=== PATIENT | female | born 1950 | race Caucasian/White ===

== ENCOUNTER 2019-09-15 11:00 | Emergency (ER) | payer MEDICARE, OTHER ==
[2019-09-15] MEDS ORDERED: Sodium Chloride 0.9% 10 ML Syringe FLUSH PRN (11:14)
--- NOTE | 2019-09-15 11:41 | EDM.PDOC ---
ED HPI GENERAL MEDICAL PROBLEM - General Chief Complaint: Respiratory Problem Stated Complaint: SOB Time Seen by Provider: 09/15/19 11:05 Source of Information: Reports: Patient History Limitations: Reports: No Limitations - History of Present Illness INITIAL COMMENTS - FREE TEXT/NARRATIVE: Pt. presents to ER with complaints of shortness of breath and chest pressure. Pt. states that the symptoms started today while she was riding a stationary bike (she does physical therapy for her knee). Pt. states that she was also nauseated. She states that the symptoms have never happened in the past. She has tolerated riding this bike recently in the past. She states that she has not been experiencing any fever or chills. No jaw, arm, neck or back pain. No diaphoresis. No cough. Denies any ill contacts. She is not expectorating any sputum. Onset: Today Onset Date: 09/15/19 Location: Reports: Chest, Generalized Quality: Reports: Pressure Improves with: Reports: Rest Worsens with: Reports: Movement Context: Reports: Exercise Associated Symptoms: Reports: Shortness of Breath - Related Data Allergies Allergy/AdvReac Type Severity Reaction Status Date / Time Iodinated Contrast Media Allergy Severe Hives Verified 09/15/19 11:14 [Iodinated Contrast Media - IV Dye] metoclopramide AdvReac Headache Verified 09/15/19 11:14 HAYFEVER Allergy Shortness Uncoded 05/15/14 13:39 of Breath Home Meds: Home Meds Calcium Carb, Citrate/Vit D3 [Calcium + D3 ER Tablet] 1 each PO DAILY 05/15/14 [ History] Glucosam/Chond/Collagen/Hyalur [Glucosamine Chondroitin] 1 each PO DAILY [History] Multivitamin [Multivitamins] 1 each PO DAILY 05/15/14 [History] Simvastatin [Zocor] 10 mg PO BEDTIME 05/15/14 [History] Triamcinolone Acetonide [Nasacort] 10.8 ml NS DAILY 05/15/14 [History] Diclofenac Sodium [Voltaren] 75 mg PO DAILY #0 05/21/14 [Rx] Aspirin [Aspirin EC] 81 mg PO DAILY 09/15/19 [History] hydroCHLOROthiazide [Hydrochlorothiazide] 12.5 mg PO DAILY 09/15/19 [History] Past Medical History Other HEENT History: presbyopia. astigmatism Cardiovascular History: Reports: High Cholesterol Respiratory History: Reports: SOB Gastrointestinal History: Reports: Diverticulosis Endocrine/Metabolic History: Reports: Osteopenia Other Endocrine/Metabolic History: prediabetes - Past Surgical History Other GI Surgeries/Procedures: hiatal hernia Female Surgical History: Reports: Hysterectomy Other Female Surgeries/Procedures: vaginal vault prolapse post hysterectomy Other Musculoskeletal Surgeries/Procedures:: total hip arthroplasty Social & Family History - Tobacco Use Smoking Status *Q: Never Smoker ED ROS GENERAL - Review of Systems Review Of Systems: See Below Constitutional: Reports: No Symptoms HEENT: Reports: No Symptoms Respiratory: Reports: Shortness of Breath. Denies: Wheezing, Cough, Sputum, Hemoptysis Cardiovascular: Reports: Dyspnea on Exertion, Other (chest pressure). Denies: Palpitations Endocrine: Reports: No Symptoms GI/Abdominal: Reports: No Symptoms : Reports: No Symptoms Musculoskeletal: Reports: No Symptoms Skin: Reports: No Symptoms Neurological: Reports: No Symptoms Psychiatric: Reports: No Symptoms Hematologic/Lymphatic: Reports: No Symptoms Immunologic: Reports: No Symptoms ED EXAM, GENERAL - Physical Exam Exam: See Below Exam Limited By: No Limitations General Appearance: Alert, WD/WN, No Apparent Distress Nose: Normal Inspection, Normal Mucosa Throat/Mouth: Normal Voice, No Airway Compromise Head: Atraumatic, Normocephalic Neck: Normal Inspection, Supple, Non-Tender, Full Range of Motion Respiratory/Chest: Decreased Breath Sounds Cardiovascular: Normal Peripheral Pulses, Regular Rate, Rhythm, No Edema, No Rub GI/Abdominal: Soft, Non-Tender, No Mass (Female) Exam: Deferred Rectal (Female) Exam: Deferred Back Exam: Full Range of Motion Extremities: Normal Inspection, Normal Range of Motion Neurological: Alert, Oriented, CN II-XII Intact, Normal Cognition, Normal Gait, No Motor/Sensory Deficits Psychiatric: Normal Affect, Normal Mood Skin Exam: Warm, Dry, Intact, Normal Color, No Rash Lymphatic: No Adenopathy EKG INTERPRETATION Rhythm: NSR Leslie: Normal P-Wave: Present QRS: Normal ST-T: Normal QT: Normal Course - Vital Signs Last Recorded V/S: Last Vital Signs Temp 36.6 C 09/15/19 11:05 Pulse 79 09/15/19 12:05 Resp 16 09/15/19 12:05 BP 129/74 09/15/19 12:05 Pulse Ox 96 09/15/19 12:05 - Orders/Labs/Meds Orders: Active Orders 24 hr Category Date Time Status EKG Documentation Completion [RC] STAT Care 09/15/19 11:14 Active Peripheral IV Insertion Adult [OM.PC] Routine Oth 09/15/19 11:14 Ordered Labs: Laboratory Tests 09/15/19 09/15/19 09/15/19 Range/Units 11:26 11:26 11:26 WBC 6.1 (4.0-10.0) x10^3/uL RBC 4.57 (4.00-5.50) x10^6/uL Hgb 14.8 D (12.0-16.0) g/dL Hct 44.8 (33.0-47.0) % MCV 98.0 H (78.0-93.0) fL MCH 32.4 H (26.0-32.0) pg MCHC 33.0 (32.0-36.0) g/dL RDW Coeff of Abel 13.5 (10.0-15.0) % Plt Count 225 D (130-400) x10^3/uL Neut % (Auto) 47.8 L (50.0-80.0) % Lymph % (Auto) 38.6 (25.0-50.0) % P[place] % (Auto) 10.3 (2.0-11.0) % Eos % (Auto) 2.8 (0.0-4.0) % Baso % (Auto) 0.5 (0.2-1.2) % PT 9.9 (9.5-12.3) SEC INR 0.9 L (2.0-3.5) D-Dimer, Quantitative 0.56 (<=0.58) mg/LFEU Sodium 142 (136-145) mmol/L Potassium 4.2 (3.5-5.1) mmol/L Chloride 105 (98-107) mmol/L Carbon Dioxide 25 (21-32) mmol/L Anion Gap 16.2 (10-20) mmol/L BUN 17 (7-18) mg/dL Creatinine 0.9 (0.55-1.02) mg/dL Est Cr Clr Drug Dosing TNP Estimated GFR (MDRD) > 60 Glucose 97 (74-106) mg/dL Calcium 9.5 (8.5-10.1) mg/dL Corrected Calcium 9.66 (8.5-10.1) mg/dL Magnesium 2.2 (1.8-2.4) mg/dL Total Bilirubin 0.3 (0.2-1.0) mg/dL AST 17 (15-37) U/L ALT 25 (14-59) U/L Alkaline Phosphatase 99 (46-116) U/L Troponin I < 0.017 (<=0.056) ng/mL NT-Pro-B Natriuret Pep 55 (<=125) pg/mL Total Protein 8.3 H (6.4-8.2) g/dL Albumin 3.8 (3.4-5.0) g/dL Globulin 4.5 Albumin/Globulin Ratio 0.84 TSH, Ultra Sensitive 3.236 (0.358-3.74) uIU/mL Meds: Medications Discontinued Medications Generic Name Dose Route Start Last Admin Trade Name Freq PRN Reason Stop Dose Admin Sodium Chloride 10 ml 09/15/19 11:14 Saline Flush FLUSH ASDIRECTED PRN Keep Vein Open Departure - Departure Time of Disposition: 13:00 Disposition: Home, Self-Care 01 Clinical Impression: Hiatal hernia - Discharge Information Instructions: Hiatal Hernia Referrals: Yareli Patel, [Primary Care Provider] - Forms: ED Department Discharge Additional Instructions: Follow-up with Dr. Downs regarding your hiatal hernia. It looks worse and likely was contributing to your shortness of breath. There doesn't appear to be any other life-threatening causes for your shortness of breath. I would not exert yourself with exercise until this is repaired. Return to ER if you have increased chest pain, shortness of breath, or other worrisome signs/symptoms. - My Orders Last 24 Hours: My Active Orders 09/15/19 11:14 EKG Documentation Completion [RC] STAT Peripheral IV Insertion Adult [OM.PC] Routine - Assessment/Plan Last 24 Hours: My Active Orders 09/15/19 11:14 EKG Documentation Completion [RC] STAT Peripheral IV Insertion Adult [OM.PC] Routine Plan: Follow-up with Dr. Downs regarding your hiatal hernia. It looks worse and likely was contributing to your shortness of breath. There doesn't appear to be any other life-threatening causes for your shortness of breath. I would not exert yourself with exercise until this is repaired. Return to ER if you have increased chest pain, shortness of breath, or other worrisome signs/symptoms. Sepsis Event Note - Evaluation Sepsis Screening Result: No Definite Risk - Focused Exam Date Exam was Performed: 09/16/19 Time Exam was Performed: 10:01
[2019-09-15 12:03] LABS: CHLORIDE,CL 105 mmol/L (98-107); SODIUM,NA 142 mmol/L (136-145)
[2019-09-15 12:04] LABS: ANION GAP 16.2 mmol/L (10-20)
[2019-09-15 12:06] VITALS: BP 129/74; PULSE 79
--- NOTE | 2019-09-15 12:41 | CR ---
[id number] RAD/RAD Chest PA or AP 1V EXAM: RAD Chest PA or AP 1V INDICATION: SHORTNESS OF BREATH. COMPARISON: 2008. DISCUSSION: Marked and asymmetric elevation of right hemidiaphragm. Finding was not seen in 2009. Left lung remains clear. Heart is normal in size. IMPRESSION: As above. Erickson Gilbert MD 09/15/19 [id number] Thank you for allowing us to participate in the care of your patient.
== END 2019-09-15 13:00 | disposition home or self-care (01) ==
LOC: VM.ED 11:00
DX: K44.9 Diaphragmatic hernia without obstruction or gangrene (principal); E78.00 Pure hypercholesterolemia, unspecified; Z91.041 Radiographic dye allergy status; Z88.8 Allergy status to other drugs, medicaments and biological substances; Z79.82 Long term (current) use of aspirin; Z79.899 Other long term (current) drug therapy; Z90.710 Acquired absence of both cervix and uterus
CPT/HCPCS: 36415; 71045; 80053; 83735; 83880; 84443; 84484; 85025; 85379; 85610; 93005; 93010; 99284-GF; 99285-25

== ENCOUNTER 2019-10-23 08:52 | Day surgery (SDC) | payer MEDICARE, OTHER ==
[~2019-10-23 08:52] MED LIST: Lactated Ringers 1,000 ML IV SCH; Sodium Chloride 0.9% 10 ML Syringe FLUSH PRN
[2019-10-23] MEDS ORDERED: Propofol 200 MG/20 ML SDV ONE (10:12)
[2019-10-23] MEDS ORDERED: fentaNYL 100 MCG/2 ML SDV ONE (10:12)
[2019-10-23 11:11] VITALS: BP 116/71; PULSE 85
--- NOTE | 2019-10-24 09:42 | OR ---
PRE-OPERATIVE DIAGNOSES: 1. Substernal pain with eating. 2. Abdominal bloating. 3. No history of dysphagia, but patient does have regurgitation. 4. History of very large hiatal hernia. This is the patient's first esophagogastroduodenoscopy. She is on low-dose aspirin and diclofenac once daily. POST-OPERATIVE DIAGNOSES: 1. 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 The patient had difficult to intubate antral pouch which turns out to be probably at the level of the diaphragm, which would correlate with her history of very large hiatal hernia containing most of her stomach, probably 80%. 2. Some minimal antritis and duodenal bulb inflammation noted. Antral biopsy x2 bites taken using cold forceps. PROCEDURE: Esophagogastroduodenoscopy with cold biopsy x1 site. SURGEON: Jonny Molina M.D. ANESTHESIA: Monitored anesthesia care. INDICATION: Pat is a 68-year-old female who was brought to the endoscope suite after discussion of risks and benefits (including but not limited to reaction to medication, bleeding, infection, aspiration, perforation). Informed consent was obtained for monitored anesthesia care and esophagogastroduodenoscopy along with possible biopsy and/or dilatation. DESCRIPTION OF PROCEDURE: Pre-procedure exam including oral cavity was unremarkable. IV, oxygen, and monitors were placed. Patient was placed in the left lateral position and sedation was administered. A bite block was placed gently and scope lightly lubricated and passed through the bite block and over the tongue. Hypopharynx and vocal cords were visualized and unremarkable. Scope was passed through the cricopharynx and into the esophagus. The scope was then passed through the distal esophagus and the GE junction was visualized and photographed. The GE junction was remarkable for somewhat tortuous lower esophagus. Z-line was appreciated without any significant inflammation present. There was an almost separate like fundic pouch without any significant inflammation or irritation. Gastric body opened up nicely, but then stomach appeared to have almost backwards or malrotated position. The antrum was actually somewhat difficult to locate and definitely difficult to intubate given its almost backwards or malrotated position. With some help of abdominal pressure and scope maneuvering, I was able to get into the antrum and then into the small intestine eventually. The scope was advanced to the third portion of the duodenum. The second and third portions of the duodenum were unremarkable. The duodenal bulb was visualized and revealed some minimal duodenitis. The scope was brought back into the stomach. The pylorus and antrum were remarkable for some minimal antritis. Cold biopsy x2 bites taken for path and H. pylori. Scope was then removed from the antral pouch and then retroflexed to visualize the angularis, fundus, body, and cardia. These were unremarkable. The stomach was desufflated of air and then the scope was slowly withdrawn, and the esophagus was closely visualized during withdrawal all the way into the posterior pharynx. Esophagus was otherwise unremarkable. The patient tolerated the procedure well and went to recovery in stable condition. The patient was monitored until at baseline status. Findings and discharge instructions were reviewed and the patient was discharged in good condition. COMPLICATIONS: None. TOTAL TIME: 17 minutes. ESTIMATED BLOOD LOSS: Less than 1 mL. RECOMMENDATIONS/FOLLOW-UP: We will await results of path report and send letter with results on her antral biopsies. She can use [id number] Pepcid as needed for any dyspepsia or reflux symptoms. I will check into what her upper GI study showed to confirm the definitely odd findings on the EGD. We will have the patient hold her aspirin for 3 days. I would like to kindly thank Yareli Patel and Brayan Lilly for this referral. DMB: 10/23/2019 11:25:25 MODL: 10/23/2019 16:57:21 /[id number]
== END 2019-10-23 11:57 | disposition home or self-care (01) ==
LOC: VM.SDS 08:52
PROVIDERS: ATTEND Family Medicine
DX: K29.50 Unspecified chronic gastritis without bleeding (principal); K29.80 Duodenitis without bleeding; K21.9 Gastro-esophageal reflux disease without esophagitis; E78.5 Hyperlipidemia, unspecified; E66.9 Obesity, unspecified; G43.909 Migraine, unspecified, not intractable, without status migrainosus; K57.30 Diverticulosis of large intestine without perforation or abscess without bleeding; R73.03 Prediabetes; E78.00 Pure hypercholesterolemia, unspecified; G62.9 Polyneuropathy, unspecified; Z11.59 Encounter for screening for other viral diseases; Z79.899 Other long term (current) drug therapy; Z79.82 Long term (current) use of aspirin; Z88.8 Allergy status to other drugs, medicaments and biological substances; Z91.041 Radiographic dye allergy status; Z91.018 Allergy to other foods; Z68.33 Body mass index [BMI] 33.0-33.9, adult
CPT/HCPCS: 00731; 43239; 88305; 88342; J2704; J3010; J7120; U0002

== ENCOUNTER 2020-09-09 07:40 | Day surgery (SDC) | payer MEDICARE, OTHER ==
[2020-09-09] MEDS ORDERED: fentaNYL 100 MCG/2 ML SDV ONE (08:56)
[2020-09-09] MEDS ORDERED: Propofol 200 MG/20 ML SDV ONE ×2 (08:56→10:21)
[2020-09-09 10:59] VITALS: BP 115/67; PULSE 60
--- NOTE | 2020-09-09 13:42 | OR ---
DATE OF SURGERY: 09/09/2020. REFERRING PROVIDER: Yareli Patel DO PRE-OPERATIVE DIAGNOSES: 1. Positive family history of colon cancer in brother who was diagnosed at age 86 just this past June. 2. Chronic abdominal bloating along with alternating constipation and diarrhea since last fall. The patient's last colonoscopy was 01/2012 in [place]. POST-OPERATIVE DIAGNOSES: 1. A total of 4 small polyps removed, all using cold forceps. a. 2 mm polyp at 100 cm. b. 4 mm polyp at 90 cm. c. 4 mm polyp at 60 cm. d. 3 mm polyp at 45 cm. 2. Significant diverticulosis, especially the sigmoid colon. The patient did have [id number] amount of remnant stool present within the tics. 3. Normal-appearing distal ilium. Cold biopsy x2 bites taken. 4. Otherwise normal-appearing colonic mucosa. Random biopsies taken from each segment. PROCEDURE: Colonoscopy with polypectomy x4 using cold forceps. Random biopsies taken from distal ileum and then each segment of the colon including rectum. SURGEON: Jonny Molina M.D. ANESTHESIA: Monitored anesthesia care. BOWEL PREP: Fair to good. There were remnant stool clumps mostly in the sigmoid area where significant diverticulosis was present. Pat is a 69-year-old female who was brought to the endoscopy suite after discussing risks and benefits of the procedure. Informed consent was obtained for conscious sedation and colonoscopy with or without biopsy and/or polypectomy. We also discussed possibility of missed lesions. Pre-procedure exam was unremarkable. IV, oxygen, and monitors were placed. The patient was placed in the left lateral decubitus position. Sedation was administered and a digital rectal exam was performed unremarkable except for some external hemorrhoids. Colonoscope was passed into the rectum and slowly advanced all the way to the cecum. Cecum was viewed and photographed. Ileocecal valve was intubated and distal ileum was normal in appearance. Cold biopsy x2 bites were taken. The colonoscope was slowly withdrawn and the mucosa was closely observed in a direct circumferential manner. Colonic mucosa appeared normal. Random biopsies were taken given her above symptoms. Otherwise, the ascending colon was remarkable for 2 mm polyp and 4 mm polyp at 100 cm and 90 cm respectively. This was around the hepatic flexure area. The transverse colon was unremarkable except for start of diverticulosis. The descending colon revealed the diverticulosis as well as 4 mm polyp at 60 cm, removed using cold forceps. The sigmoid colon revealed significant diverticulosis as well as a 3 mm polyp at 45 cm. Retroflexion was performed and rectal mucosa was unremarkable. Scope was removed. The patient tolerated the procedure well. The patient was monitored until that baseline status. Discharge instructions were reviewed and the patient was discharged in good condition. COMPLICATIONS: None. TOTAL TIME: 42 minutes. ESTIMATED BLOOD LOSS: 1 to 2 mL. RECOMMENDATIONS/FOLLOW-UP: We will await results of path report to determine ideal followup interval. I would like to kindly thank Yareli Patel for this referral. DMB: 09/09/2020 10:50:54 MODL: 09/09/2020 12:22:32 /[id number]
== END 2020-09-09 12:25 | disposition home or self-care (01) ==
LOC: VM.SDS 07:40
PROVIDERS: ATTEND Family Medicine
DX: D12.2 Benign neoplasm of ascending colon (principal); D12.4 Benign neoplasm of descending colon; K57.30 Diverticulosis of large intestine without perforation or abscess without bleeding; Z80.0 Family history of malignant neoplasm of digestive organs; K64.4 Residual hemorrhoidal skin tags; E66.9 Obesity, unspecified; E78.00 Pure hypercholesterolemia, unspecified; R73.03 Prediabetes; K29.50 Unspecified chronic gastritis without bleeding; Z91.041 Radiographic dye allergy status; Z88.8 Allergy status to other drugs, medicaments and biological substances; Z98.890 Other specified postprocedural states; Z79.899 Other long term (current) drug therapy; Z82.49 Family history of ischemic heart disease and other diseases of the circulatory system; Z91.018 Allergy to other foods; Z68.30 Body mass index [BMI] 30.0-30.9, adult
CPT/HCPCS: 00812; 88305; J2704; J3010; J7120

== ENCOUNTER 2021-07-24 08:54 | Observation (INO) | payer MEDICARE, OTHER ==
[2021-07-24] MEDS ORDERED: Ondansetron 4 MG/2 ML SDV IVPUSH PRN (09:24)
[2021-07-24] MEDS ORDERED: Sodium Chloride 0.9% 1,000 ML IV SCH ×2 (09:30→12:30)
[2021-07-24 10:02] LABS: CHLORIDE,CL 108 mmol/L (98-107); SODIUM,NA 140 mmol/L (136-145)
[2021-07-24] MEDS ORDERED: Meclizine 25 MG Tab PO ONE (10:13)
[2021-07-24 10:15] LABS: ANION GAP 13.8 mmol/L (5-15)
[2021-07-24] MEDS ORDERED: Ondansetron 4 MG Tab.DIS PO PRN (12:30)
[2021-07-24] MEDS ORDERED: Sodium Chloride 0.9% 10 ML Syringe FLUSH PRN (12:30)
[2021-07-24] MEDS ORDERED: Promethazine 12.5 MG in Sodium Chloride 0.9% 100 ML IV ONE (13:11)
[2021-07-24] MEDS: Meclizine 25 MG Tab PO SCH ×2 (13:32→20:10)
[2021-07-24] MEDS: Ondansetron 4 MG/2 ML SDV IV PRN (17:56)
[2021-07-24] MEDS: Gabapentin 100 MG Cap PO SCH (20:09)
[2021-07-24] MEDS: Simvastatin 10 MG Tab PO SCH (20:10)
[2021-07-25] MEDS: Acetaminophen 325 MG Tab PO PRN (04:52)
[2021-07-25] MEDS: Ondansetron 4 MG/2 ML SDV IV PRN ×2 (04:52→12:34)
[2021-07-25] MEDS: Meclizine 25 MG Tab PO SCH ×4 (04:53→20:28)
[2021-07-25 06:58] LABS: CHLORIDE,CL 109 mmol/L (98-107); SODIUM,NA 142 mmol/L (136-145)
[2021-07-25] MEDS ORDERED: Gabapentin 100 MG Cap PO SCH (07:00)
[2021-07-25 07:02] LABS: ANION GAP 10.4 mmol/L (5-15)
[2021-07-25] MEDS: Diclofenac Sodium 75 MG Tab.EC PO SCH (08:06)
[2021-07-25] MEDS: predniSONE 10 MG Tab PO SCH (08:06)
[2021-07-25] MEDS ORDERED: Potassium Chloride 10 MEQ Tab.ER PO ONE (08:27)
[2021-07-25] MEDS: Gabapentin 100 MG Cap PO SCH ×2 (15:20→20:28)
[2021-07-25] MEDS ORDERED: Promethazine 25 MG Tab PO PRN (17:14)
[2021-07-25] MEDS: Simvastatin 10 MG Tab PO SCH (20:28)
[2021-07-26] MEDS: Acetaminophen 325 MG Tab PO PRN (05:10)
[2021-07-26 07:09] LABS: ANION GAP 10.3 mmol/L (5-15); CHLORIDE,CL 105 mmol/L (98-107); SODIUM,NA 140 mmol/L (136-145)
[2021-07-26] MEDS: Gabapentin 100 MG Cap PO SCH (07:21)
[2021-07-26] MEDS: predniSONE 10 MG Tab PO SCH (07:21)
[2021-07-26] MEDS: Diclofenac Sodium 75 MG Tab.EC PO SCH (07:21)
[2021-07-26] MEDS: Meclizine 25 MG Tab PO SCH (07:21)
[2021-07-26] MEDS ORDERED: Potassium Chloride 10 MEQ Tab.ER PO ONE (08:22)
[2021-07-26 09:58] VITALS: BP 140/61; PULSE 60
[2021-07-26] MEDS ORDERED: Meclizine 25 MG Tab PO PRN (10:18)
== END 2021-07-26 10:57 | disposition home or self-care (01) ==
LOC: VM.ED 08:54 → VM.MS 11:03
PROVIDERS: ADMIT Physician Assistant Medical; ATTEND Physician Assistant Medical
DX: R42 Dizziness and giddiness (principal); R19.7 Diarrhea, unspecified; E66.9 Obesity, unspecified; E78.00 Pure hypercholesterolemia, unspecified; G43.909 Migraine, unspecified, not intractable, without status migrainosus; Z91.041 Radiographic dye allergy status; Z88.8 Allergy status to other drugs, medicaments and biological substances; Z91.018 Allergy to other foods; Z79.899 Other long term (current) drug therapy; Z98.890 Other specified postprocedural states; Z20.822 Contact with and (suspected) exposure to COVID-19
CPT/HCPCS: 36415; 70450; 80048; 80053; 81001; 83735; 84484; 85025; 86140; 93005; 93010; 96374; 96375; 96376; 97140-GP; 97163-GP; 99220; 99285-25; A9270-GY; G0378; J2405; J2550; J3490; J7030; J7512; U0002

== ENCOUNTER 2024-03-09 16:24 | Emergency (ER) | payer MEDICARE, OTHER ==
[2024-03-09] MEDS: Take Home: Cephalexin 500 MG Cap, 6 Cap Pack PO ONE (17:13)
[2024-03-09 17:27] VITALS: BP 124/61; PULSE 63
== END 2024-03-09 17:15 | disposition home or self-care (01) ==
LOC: VM.ED 16:24
DX: L03.115 Cellulitis of right lower limb (principal); E78.00 Pure hypercholesterolemia, unspecified; E66.9 Obesity, unspecified; Z79.899 Other long term (current) drug therapy; Z91.041 Radiographic dye allergy status; Z88.8 Allergy status to other drugs, medicaments and biological substances; Z91.018 Allergy to other foods; Z68.33 Body mass index [BMI] 33.0-33.9, adult
CPT/HCPCS: 99283; A9270

== ENCOUNTER 2024-06-01 12:41 | Inpatient (IN) | payer MEDICARE, OTHER ==
[2024-06-01] MEDS ORDERED: Sodium Chloride 0.9% 10 ML Syringe FLUSH PRN (12:52)
[2024-06-01 13:04] LABS: HEMATOCRIT 45.7 % (33.0-47.0); HEMOGLOBIN 15.1 g/dL (12.0-16.0); MEAN CORPUSCULAR HEMOGLOBIN 33.8 pg (26.0-32.0); MEAN CORPUSCULAR VOLUME 102.2 fL (78.0-93.0); PLATELET COUNT,PLT 283 x10^3/uL (130-400); RED BLOOD CELL COUNT 4.47 x10^6/uL (4.00-5.50)
[2024-06-01 13:05] LABS: WHITE BLOOD CELL COUNT,WBC 20.9 x10^3/uL (4.0-10.0)
[2024-06-01 13:12] LABS: BAND PERCENT MAN 3 % (0-6); LYMPHOCYTES ABSOLUTE MAN 0.6 x10^3/uL (1.0-4.8); LYMPHOCYTES PERCENT MAN 3 % (25-50); MONOCYTES ABSOLUTE MAN 1.3 x10^3/uL (0.0-0.8); MONOCYTES PERCENT MAN 6 % (2-11); SEG NEUTROPHILS PERCENT MAN 88 % (50-80)
[2024-06-01 13:13] LABS: PLATELET COUNT ESTIMATE ADEQUATE
[2024-06-01 13:20] LABS: A/G RATIO 0.98; ALANINE AMINOTRANSFERASE,ALT 23 U/L (14-59); ALBUMIN 4.2 g/dL (3.4-5.0); ALKALINE PHOSPHATASE 118 U/L (46-116); ASPARTATE AMNIOTRANSFERASE,AST 16 U/L (15-37); BILIRUBIN TOTAL 0.4 mg/dL (0.2-1.0); BLOOD UREA NITROGEN,BUN 16 mg/dL (7-18); C-REACTIVE PROTEIN 0.93 mg/dL (<=0.50); CARBON DIOXIDE,CO2 23 mmol/L (21-32); CHLORIDE,CL 102 mmol/L (98-107); CREATININE 1.4 mg/dL (0.55-1.02); GLUCOSE RANDOM 178 mg/dL (70-99); POTASSIUM,K 4.3 mmol/L (3.5-5.1); PROTEIN TOTAL,TP 8.5 g/dL (6.4-8.2); SODIUM,NA 138 mmol/L (136-145)
[2024-06-01 13:35] LABS: ANION GAP 17.3 mmol/L (5-15); ESTIMATED GFR 39 mL/min (>=60)
[2024-06-01] MEDS: Sodium Chloride 0.9% 1,000 ML IV ONE ×2 (13:49→15:55)
[2024-06-01] MEDS: Ondansetron 4 MG/2 ML SDV IVPUSH ONE (13:50)
[2024-06-01] MEDS: Morphine 4 MG/ML Syringe IVPUSH ONE (14:07)
[2024-06-01] MEDS: cefTRIAXone 2 GM Vial IVPUSH ONE (15:48)
[2024-06-01] MEDS: metroNIDAZOLE/Normal Saline 500 MG in Premix Bag 1 BAG IV ONE (15:54)
[2024-06-01] MEDS ORDERED: diphenhydrAMINE 25 MG Cap PO PRN (17:22)
[2024-06-01] MEDS: Lactated Ringers 1,000 ML IV SCH (17:24)
[2024-06-01] MEDS: HYDROmorphone 0.5 MG/0.5 ML Syringe IVPUSH PRN (17:27)
[2024-06-01] MEDS: Gabapentin 300 MG Cap PO SCH (21:33)
[2024-06-01] MEDS: Topiramate 25 MG Tab PO SCH (21:34)
[2024-06-01] MEDS: Magnesium Sulf/Wat 2 GM/50 mL 2 GM in Premix Bag 1 BAG IV ONE (21:34)
[2024-06-01] MEDS: Pravastatin 20 MG Tab PO SCH (21:34)
[2024-06-01] MEDS: Acetaminophen 325 MG Tab PO PRN (21:47)
[2024-06-01] MEDS: Ondansetron 4 MG/2 ML SDV IV PRN (23:27)
[2024-06-01] MEDS: metroNIDAZOLE/Normal Saline 500 MG in Premix Bag 1 BAG IV SCH (23:50)
[2024-06-02 01:12] LABS: BILIRUBIN,URINE NEGATIVE (NEGATIVE); COLOR,URINE DARK YELLOW (YELLOW); GLUCOSE,URINE NEGATIVE (NEGATIVE); KETONES,URINE NEGATIVE (NEGATIVE); LEUKOCYTE ESTERASE,URINE NEGATIVE (NEGATIVE); NITRITE,URINE NEGATIVE (NEGATIVE); OCCULT BLOOD,URINE NEGATIVE (NEGATIVE); PH,URINE 5.5 (5.0-8.0); PROTEIN,URINE NEGATIVE (NEGATIVE); UROBILINOGEN,URINE 0.2 EU/dL (0.2)
[2024-06-02 01:15] LABS: APPEARANCE,URINE SLIGHTLY CLOUDY (CLEAR)
[2024-06-02 07:16] LABS: BASOPHILS PERCENT AUTO 0.1 % (0.2-1.2); EOSINOPHILS ABSOLUTE AUTO 0.1 x10^3/uL (0.0-0.5); EOSINOPHILS PERCENT AUTO 0.7 % (0.0-4.0); HEMATOCRIT 35.6 % (33.0-47.0); HEMOGLOBIN 11.7 g/dL (12.0-16.0); IMMATURE GRAN ABSOLUTE AUTO 0.02 x10^3/uL (0.00-0.07); LYMPHOCYTES ABSOLUTE AUTO 1.6 x10^3/uL (1.0-4.8); MEAN CORPUSCULAR HEMOGLOBIN 34.2 pg (26.0-32.0); MEAN CORPUSCULAR HGB CONC 32.9 g/dL (32.0-36.0); MEAN CORPUSCULAR VOLUME 104.1 fL (78.0-93.0); MONOCYTES ABSOLUTE AUTO 1.4 x10^3/uL (0.0-0.8); MONOCYTES PERCENT AUTO 9.4 % (2.0-11.0); NEUTROPHILS ABSOLUTE AUTO 11.9 x10^3/uL (1.8-7.7); NEUTROPHILS PERCENT AUTO 78.8 % (50.0-80.0); PLATELET COUNT,PLT 235 x10^3/uL (130-400); RED BLOOD CELL COUNT 3.42 x10^6/uL (4.00-5.50); WHITE BLOOD CELL COUNT,WBC 15.1 x10^3/uL (4.0-10.0)
[2024-06-02 07:24] LABS: LYMPHOCYTES PERCENT AUTO 10.9 % (25.0-50.0)
[2024-06-02 07:27] LABS: A/G RATIO 0.83; ALBUMIN 2.9 g/dL (3.4-5.0); BILIRUBIN TOTAL 0.4 mg/dL (0.2-1.0); CALCIUM 8.6 mg/dL (8.5-10.1); CREATININE 0.9 mg/dL (0.55-1.02); EST CRCL DRUG DOSING (CG) 48.6 mL/min; POTASSIUM,K 4.2 mmol/L (3.5-5.1); PROTEIN TOTAL,TP 6.4 g/dL (6.4-8.2)
[2024-06-02 07:29] LABS: ANION GAP 12.2 mmol/L (5-15)
[2024-06-02] MEDS: cefTRIAXone 2 GM Vial IVPUSH SCH (08:18)
[2024-06-02] MEDS: Enoxaparin 40 MG/0.4 ML Syringe SUBCUT SCH (12:30)
[2024-06-03 07:04] LABS: BASOPHILS PERCENT AUTO 0.2 % (0.2-1.2); EOSINOPHILS ABSOLUTE AUTO 0.3 x10^3/uL (0.0-0.5); EOSINOPHILS PERCENT AUTO 3.3 % (0.0-4.0); HEMATOCRIT 35.6 % (33.0-47.0); HEMOGLOBIN 11.6 g/dL (12.0-16.0); IMMATURE GRAN ABSOLUTE AUTO 0.01 x10^3/uL (0.00-0.07); LYMPHOCYTES ABSOLUTE AUTO 2.3 x10^3/uL (1.0-4.8); LYMPHOCYTES PERCENT AUTO 22.6 % (25.0-50.0); MEAN CORPUSCULAR HEMOGLOBIN 33.8 pg (26.0-32.0); MEAN CORPUSCULAR HGB CONC 32.6 g/dL (32.0-36.0); MEAN CORPUSCULAR VOLUME 103.8 fL (78.0-93.0); MONOCYTES ABSOLUTE AUTO 0.8 x10^3/uL (0.0-0.8); MONOCYTES PERCENT AUTO 7.8 % (2.0-11.0); NEUTROPHILS ABSOLUTE AUTO 6.7 x10^3/uL (1.8-7.7); PLATELET COUNT,PLT 230 x10^3/uL (130-400); RED BLOOD CELL COUNT 3.43 x10^6/uL (4.00-5.50); WHITE BLOOD CELL COUNT,WBC 10.2 x10^3/uL (4.0-10.0)
[2024-06-03 07:12] LABS: C-REACTIVE PROTEIN 7.26 mg/dL (<=0.50); CALCIUM 8.9 mg/dL (8.5-10.1); CREATININE 0.9 mg/dL (0.55-1.02); EST CRCL DRUG DOSING (CG) 48.6 mL/min; POTASSIUM,K 3.9 mmol/L (3.5-5.1)
[2024-06-03 07:16] LABS: ANION GAP 15.9 mmol/L (5-15)
[2024-06-03] MEDS ORDERED: Acetaminophen/HYDROcodone 325-5 MG Tab PO PRN (08:24)
[2024-06-03] MEDS: Piperacillin/Tazobactam 4.5 GM in Sodium Chloride 0.9% 100 ML IV ONE (09:10)
[2024-06-03] MEDS: Piperacillin/Tazobactam 4.5 GM in Sodium Chloride 0.9% 100 ML IV SCH (12:14)
[2024-06-03] MEDS ORDERED: Dicyclomine 10 MG Cap PO PRN (12:21)
[2024-06-03] MEDS ORDERED: Simethicone 80 MG Tab.Chew PO PRN (12:21)
[2024-06-03] MEDS: Simethicone 80 MG Tab.Chew PO ONE (12:36)
[2024-06-04 07:10] LABS: BASOPHILS PERCENT AUTO 0.3 % (0.2-1.2); EOSINOPHILS ABSOLUTE AUTO 0.4 x10^3/uL (0.0-0.5); EOSINOPHILS PERCENT AUTO 4.8 % (0.0-4.0); HEMATOCRIT 35.2 % (33.0-47.0); HEMOGLOBIN 11.7 g/dL (12.0-16.0); LYMPHOCYTES ABSOLUTE AUTO 2.4 x10^3/uL (1.0-4.8); LYMPHOCYTES PERCENT AUTO 32.6 % (25.0-50.0); MEAN CORPUSCULAR HGB CONC 33.2 g/dL (32.0-36.0); MEAN CORPUSCULAR VOLUME 102.3 fL (78.0-93.0); MONOCYTES ABSOLUTE AUTO 0.7 x10^3/uL (0.0-0.8); MONOCYTES PERCENT AUTO 9.3 % (2.0-11.0); PLATELET COUNT,PLT 232 x10^3/uL (130-400); RED BLOOD CELL COUNT 3.44 x10^6/uL (4.00-5.50); WHITE BLOOD CELL COUNT,WBC 7.5 x10^3/uL (4.0-10.0)
[2024-06-04 07:37] LABS: A/G RATIO 0.79; BILIRUBIN TOTAL 0.3 mg/dL (0.2-1.0); CREATININE 0.8 mg/dL (0.55-1.02); EST CRCL DRUG DOSING (CG) 54.67 mL/min; POTASSIUM,K 3.8 mmol/L (3.5-5.1); PROTEIN TOTAL,TP 6.8 g/dL (6.4-8.2)
[2024-06-04 07:50] LABS: ANION GAP 14.8 mmol/L (5-15)
[2024-06-04] MEDS: Furosemide 20 MG Tab PO SCH (08:35)
[2024-06-04 09:20] VITALS: BP 121/61; PULSE 56
[2024-06-04] MEDS ORDERED: Amoxicillin/Clavulanate K 875-125 MG Tab PO SCH (18:00)
== END 2024-06-04 12:13 | disposition home or self-care (01) | DRG 872 ==
LOC: VM.ED 12:41 → VM.MS 15:46
PROVIDERS: ADMIT Internal Medicine; ATTEND Internal Medicine
DX: A41.9 Sepsis, unspecified organism (principal); K57.32 Diverticulitis of large intestine without perforation or abscess without bleeding; N17.9 Acute kidney failure, unspecified; D84.81 Immunodeficiency due to conditions classified elsewhere; H52.4 Presbyopia; H52.209 Unspecified astigmatism, unspecified eye; Z68.32 Body mass index [BMI] 32.0-32.9, adult; E78.00 Pure hypercholesterolemia, unspecified; Z91.018 Allergy to other foods; Z88.1 Allergy status to other antibiotic agents; Z91.048 Other nonmedicinal substance allergy status; M85.80 Other specified disorders of bone density and structure, unspecified site; G43.909 Migraine, unspecified, not intractable, without status migrainosus; E66.9 Obesity, unspecified; I87.2 Venous insufficiency (chronic) (peripheral); R73.03 Prediabetes; M06.9 Rheumatoid arthritis, unspecified; M17.0 Bilateral primary osteoarthritis of knee; M54.16 Radiculopathy, lumbar region; Z96.641 Presence of right artificial hip joint; G62.9 Polyneuropathy, unspecified; M47.896 Other spondylosis, lumbar region; I89.0 Lymphedema, not elsewhere classified; D64.9 Anemia, unspecified; Z88.8 Allergy status to other drugs, medicaments and biological substances; Z90.710 Acquired absence of both cervix and uterus; Z79.899 Other long term (current) drug therapy; Z96.649 Presence of unspecified artificial hip joint; Z90.49 Acquired absence of other specified parts of digestive tract; Z98.890 Other specified postprocedural states; Z91.041 Radiographic dye allergy status
CPT/HCPCS: 36415; 71045; 74176; 80048; 80053; 81003; 82947; 83605; 83735; 85025; 86140; 87040; 96361; 96374; 96375; 97161-GP; 99284; 99285-25; A9270-GY; J0696; J1650; J1836; J2270; J2405; J2543; J3475; J3490; J7030; J7120

== ENCOUNTER 2025-03-13 07:41 | Day surgery (SDC) | payer MEDICARE, OTHER ==
[2025-03-13] MEDS ORDERED: Propofol 200 MG/20 ML SDV ONE (07:43)
[2025-03-13] MEDS ORDERED: fentaNYL 100 MCG/2 ML SDV ONE (07:44)
[2025-03-13] MEDS: Lactated Ringers 1,000 ML IV SCH (07:58)
[2025-03-13 10:24] VITALS: BP 119/68; PULSE 66
== END 2025-03-13 11:15 | disposition home or self-care (01) ==
LOC: VM.SDS 07:41
PROVIDERS: ATTEND Student in an Organized Health Care Education/Training Program
DX: Z12.11 Encounter for screening for malignant neoplasm of colon (principal); D12.2 Benign neoplasm of ascending colon; D12.3 Benign neoplasm of transverse colon; D12.4 Benign neoplasm of descending colon; K57.30 Diverticulosis of large intestine without perforation or abscess without bleeding; E66.9 Obesity, unspecified; E78.00 Pure hypercholesterolemia, unspecified; Z68.31 Body mass index [BMI] 31.0-31.9, adult; Z88.8 Allergy status to other drugs, medicaments and biological substances; Z79.82 Long term (current) use of aspirin; Z79.899 Other long term (current) drug therapy; Z86.0101 Personal history of adenomatous and serrated colon polyps
CPT/HCPCS: 00811; 88305; 99100; J2704; J3010; J7120